=== PATIENT | male | born 1945 | race Two or more races ===

== ENCOUNTER 2016-12-30 09:50 | Emergency (ER) | payer OTHER, MEDICARE ==
[2016-12-30 10:06] VITALS: TEMP 97.7
--- NOTE | 2016-12-30 10:13 | EDPHY ---
H & P Stated Complaint: abd pain for 2 weeks, denies fevers or n/v/d Time Seen by Provider: 12/30/16 09:52 HPI/ROS: Chief Complaint: Abdominal pain HPI: 71-year-old male presenting with intermittent but worsening abdominal discomfort for the last 2 weeks. Patient states began as a dull upper abdominal pain. Is worse after eating. It is somewhat migrated to his central abdomen, occasionally lower but still primarily on the left hand upper abdominal area. No nausea vomiting or diarrhea. No melena or hematochezia. No fevers or chills. No chest pain or shortness of breath. He has past medical history of hypertension, anxiety and recent diagnosis of prostate cancer. Has had some recent weight loss but this was intentional. Pain is described as a bloating or distention. At worst is about a 4/10. Patient does state that up until about 2 weeks ago he was drinking about 5 alcoholic drinks a day has cut this down since it started developing his abdominal discomfort. ROS: 10 point Review of Systems is negative except as noted in the HPI. PMH: Hypertension, anxiety, prostate cancer Medications: Medications: Lisinopril, paroxetine, hydrochlorothiazide Allergies: Penicillin Social History: No smoking, regular heavy alcohol, no recreational drug use Family History: non-contributory Physical Exam: Gen: Awake, Alert, No Distress HEENT: Nose: no rhinorrhea Eyes: PERRLA, EOMI Mouth: Moist mucosa Neck: Supple, no JVD Chest: nontender, lungs clear to auscultation Heart: S1, S2 normal, no murmur Abd: Soft, non-tender, no guarding Back: no CVA tenderness, no midline tenderness Ext: no edema, non-tender Skin: no rash Neuro: CN II-XII intact, Sensation grossly intact, Strength 5/5 in bilateral upper and lower extremities - Medical/Surgical History Other PMH: HTN, anxiety, prostate CA - Social History Smoking Status: Never smoked Constitutional: Initial Vital Signs Temperature (C) 36.5 C 12/30/16 10:00 Heart Rate 61 12/30/16 10:00 Respiratory Rate 18 12/30/16 10:00 Blood Pressure 151/94 H 12/30/16 10:00 O2 Sat (%) 95 12/30/16 10:00 O2 Delivery Mode Room Air Allergies/Adverse Reactions: Penicillins Allergy (Verified 12/30/16 10:02) Home Medications: Medication Instructions Recorded Hydrochlorothiazide 12/30/16 Lisinopril 12/30/16 Paxil 12/30/16 Medical Decision Making ED Course/Re-evaluation: 71-year-old male with some mild abdominal pain with a nonsurgical abdomen at this time presenting with some discomfort in concerns about possible liver disease. His liver function is entirely normal. CBC is normal. He has no evidence of acute abdominal process at this time. Will discharge with follow- up with primary care physician in 1-2 weeks. - Data Points Laboratory Results: Laboratory Results 12/30/16 10:14 12/30/16 10:14 12/30/16 12/30/16 10:14 10:14 WBC 4.72 10^3/uL 10^3/uL (3.80-9.50) RBC 4.82 10^6/uL 10^6/uL (4.40-6.38) Hgb 15.5 g/dL g/dL (13.7-17.5) Hct 43.7 % % (40.0-51.0) MCV 90.7 fL fL (81.5-99.8) MCH 32.2 pg pg (27.9-34.1) MCHC 35.5 g/dL g/dL (32.4-36.7) RDW 13.2 % % (11.5-15.2) Plt Count 241 10^3/uL 10^3/uL (150-400) MPV 9.6 fL fL (8.7-11.7) Neut % (Auto) 54.1 % % (39.3-74.2) Lymph % (Auto) 32.4 % % (15.0-45.0) [place] % (Auto) 10.8 % % (4.5-13.0) Eos % (Auto) 2.1 % % (0.6-7.6) Baso % (Auto) 0.4 % % (0.3-1.7) Nucleat RBC Rel Count 0.0 % % (0.0-0.2) Absolute Neuts (auto) 2.55 10^3/uL 10^3/uL (1.70-6.50) Absolute Lymphs (auto) 1.53 10^3/uL 10^3/uL (1.00-3.00) Absolute Monos (auto) 0.51 10^3/uL 10^3/uL (0.30-0.80) Absolute Eos (auto) 0.10 10^3/uL 10^3/uL (0.03-0.40) Absolute Basos (auto) 0.02 10^3/uL 10^3/uL (0.02-0.10) Absolute Nucleated RBC 0.00 10^3/uL 10^3/uL (0-0.01) Immature Gran % 0.2 % % (0.0-1.1) Immature Gran # 0.01 10^3/uL 10^3/uL (0.00-0.10) Sodium 137 mEq/L mEq/L (134-144) Potassium 4.1 mEq/L mEq/L (3.5-5.2) Chloride 100 mEq/L mEq/L (97-110) Carbon Dioxide 21 mEq/l L mEq/l (22-31) Anion Gap 16 mEq/L mEq/L (8-16) BUN 15 mg/dL mg/dL (7-23) Creatinine 1.0 mg/dL mg/dL (0.7-1.3) Estimated GFR > 60 Glucose 102 mg/dL H mg/dL (70-100) Calcium 9.6 mg/dL mg/dL (8.5-10.4) Total Bilirubin 0.9 mg/dL mg/dL (0.1-1.4) Conjugated Bilirubin 0.3 mg/dL mg/dL (0.0-0.5) Unconjugated Bilirubin 0.6 mg/dL mg/dL (0.0-1.1) AST 22 IU/L IU/L (17-59) ALT 21 IU/L IU/L (21-72) Alkaline Phosphatase 58 IU/L IU/L (38-126) Total Protein 7.0 g/dL g/dL (6.3-8.2) Albumin 4.2 g/dL g/dL (3.5-5.0) Lipase 75.0 IU/L IU/L (23-300) Departure - Departure Disposition: Home, Routine, Self-Care Clinical Impression: Abdominal pain Condition: Good Instructions: Abdominal Pain (ED), Gas and Bloating (ED) Additional Instructions: Follow up with primary care physician in 1-2 weeks for re-evaluation. Return to the emergency depart for increasing pain, fevers, chills, uncontrolled nausea or vomiting, or any other concerns. Referrals: [facility] [Outside] - As per Instructions
[2016-12-30 10:18] LABS: % IMMATURE GRANULYOCYTES 0.2 % (0.0-1.1); ABSOLUTE IMMATURE GRANULOCYTES 0.01 10^3/uL (0.00-0.10); ADD DIFF? NO; ADD MORPH? NO; ADD SCAN? NO; ATYPICAL LYMPHOCYTE FLAG 10 (0-99); FRAGMENT RBC FLAG 0 (0-99); HEMATOCRIT 43.7 % (40.0-51.0); HEMOGLOBIN 15.5 g/dL (13.7-17.5); LEFT SHIFT FLG 0 (0-99); LIPEMIA HEMOLYSIS FLAG 90 (0-99); MEAN CELL HEMOGLOBIN 32.2 pg (27.9-34.1); MEAN CELL HEMOGLOBIN CONCENTR. 35.5 g/dL (32.4-36.7); MEAN CELL VOLUME 90.7 fL (81.5-99.8); MEAN PLATELET VOLUME 9.6 fL (8.7-11.7); PLATELET CLUMPS FLAG 10 (0-99); PLATELET COUNT 241 10^3/uL (150-400); RED BLOOD CELL COUNT 4.82 10^6/uL (4.40-6.38); RED CELL DISTRIBUTION WIDTH 13.2 % (11.5-15.2)
[2016-12-30 10:40] LABS: ALANINE AMINOTRANSFERASE 21 IU/L (21-72); ALBUMIN 4.2 g/dL (3.5-5.0); ALKALINE PHOSPHATASE 58 IU/L (38-126); ANION GAP 16 mEq/L (8-16); ASPARTATE AMINOTRANSFERASE 22 IU/L (17-59); BILIRUBIN,TOTAL 0.9 mg/dL (0.1-1.4); BILIRUBIN-CONJUGATED 0.3 mg/dL (0.0-0.5); BILIRUBIN-UNCONJUGATED 0.6 mg/dL (0.0-1.1); CALCIUM 9.6 mg/dL (8.5-10.4); CARBON DIOXIDE 21 mEq/l (22-31); CHLORIDE 100 mEq/L (97-110); GLOMERULAR FILTRATION RATE > 60; GLUCOSE 102 mg/dL (70-100); POTASSIUM 4.1 mEq/L (3.5-5.2); SODIUM 137 mEq/L (134-144)
[2016-12-30 11:00] VITALS: PULSE 74; RESP 16; O2SAT 98
[2016-12-30 11:02] VITALS: BP 145/72
== END 2016-12-30 10:53 | disposition home or self-care (01) ==
LOC: CED 09:50
DX: R10.9 Unspecified abdominal pain (principal); I10 Essential (primary) hypertension; Z85.46 Personal history of malignant neoplasm of prostate
CPT/HCPCS: 80048-PO; 80076-PO; 83690-PO; 85025-PO

== ENCOUNTER → 2017-08-09 | Outpatient (CLI) | payer OTHER, MEDICARE | LOC: CIMAGING 10:57 | PROVIDERS: ATTEND Internal Medicine | DX: M25.511 Pain in right shoulder (principal); M19.011 Primary osteoarthritis, right shoulder; M19.012 Primary osteoarthritis, left shoulder; Z96.612 Presence of left artificial shoulder joint | CPT/HCPCS: 73030-PO ==